=== PATIENT | female | born 1990 | race Caucasian/White ===

== ENCOUNTER 2016-12-06 19:16 | Emergency (ER) | payer OTHER ==
[2016-12-06 19:27] VITALS: RESP 14; TEMP 97.7
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
[2016-12-06] MEDS ORDERED: LORazepam 2 MG/ML INJ IVP ONE (19:34)
[2016-12-06] MEDS ORDERED: fentaNYL 100 MCG/2 ML INJ IVP ONE (19:35)
[2016-12-06 20:54] VITALS: BP 140/70; PULSE 70; O2SAT 100
== END 2016-12-06 21:14 | disposition home or self-care (01) ==
DX: S59.902A Unspecified injury of left elbow, initial encounter (principal); S59.901A Unspecified injury of right elbow, initial encounter; V18.0XXA Pedal cycle driver injured in noncollision transport accident in nontraffic accident, initial encounter; Y92.410 Unspecified street and highway as the place of occurrence of the external cause; Y99.8 Other external cause status; Y93.55 Activity, bike riding
CPT/HCPCS: 96374; J2060; J3010